=== PATIENT | male | born 1980 | race African-American/Black ===

== ENCOUNTER 2020-02-16 15:34 | Emergency (ER) | payer MEDICAID, OTHER ==
[~2020-02-16] VITALS: Ht 188 cm; Wt 92.0 kg
[2020-02-16] MEDS ORDERED: KETOROLAC 60MG/2ML VIAL IM STA (16:44)
[2020-02-16 17:19] LABS: CLARITY URINE CLEAR (CLEAR); COLOR URINE YELLOW (YELLOW); KETONES URINE NEGATIVE (NEGATIVE); LEUKOCYTE ESTERASE URINE NEGATIVE (NEGATIVE); NITRITE URINE NEGATIVE (NEGATIVE); OCCULT BLOOD URINE NEGATIVE (NEGATIVE); PROTEIN URINE NEGATIVE (NEGATIVE); SPECIFIC GRAVITY URINE 1.005 (1.005-1.030); UROBILINOGEN URINE 0.2 E.U./dL (0.2-1.0)
[2020-02-16 17:44] VITALS: BP 121/70
[2020-02-16 17:56] LABS: BASOPHILS % 0.6 % (0.0-2.0); EOSINOPHILS % 1.7 % (0.0-5.0); HEMATOCRIT. 46.1 % (42.0-52.0); HEMOGLOBIN. 15.4 g/dL (14.0-18.0); MEAN CORPUSCULAR HEMOGLOBIN 29.8 pg (28.0-32.0); MEAN CORPUSCULAR VOLUME 89.2 fL (80.0-94.0); MEAN PLATELET VOLUME 7.6 fl (7.4-10.4); MONOCYTES % 7.3 % (2.0-8.0); NEUTROPHILS % 46.4 % (40.0-76.0); PLATELET 231 x1000/uL (130-400); RED BLOOD CELL COUNT 5.17 mill/uL (4.7-6.1); RED CELL DISTRIBUTION WIDTH 12.9 % (11.6-14.6)
[2020-02-16 18:00] LABS: CHLORIDE 104 mEq/L (98-107)
== END 2020-02-16 20:25 | disposition home or self-care (01) ==
LOC: ER 15:34
DX: R10.9 Unspecified abdominal pain (principal); M79.18 Myalgia, other site; J45.909 Unspecified asthma, uncomplicated
CPT/HCPCS: 36415; 80053; 81003; 85025; 93005; 99284; J1885

== ENCOUNTER 2020-02-18 17:13 | Emergency (ER) | payer OTHER, MEDICAID ==
[~2020-02-18] VITALS: Ht 188 cm; Wt 95.0 kg
[2020-02-18 17:46] VITALS: BP 123/84
[2020-02-18] MEDS ORDERED: SODIUM CHLORIDE 0.9% 1,000 ML IV ONE (17:55)
[2020-02-18 18:45] LABS: CLARITY URINE CLEAR (CLEAR); COLOR URINE DK YELLOW (YELLOW); KETONES URINE 2+ (NEGATIVE); LEUKOCYTE ESTERASE URINE NEGATIVE (NEGATIVE); NITRITE URINE NEGATIVE (NEGATIVE); OCCULT BLOOD URINE NEGATIVE (NEGATIVE); PROTEIN URINE TRACE (NEGATIVE); SPECIFIC GRAVITY URINE 1.027 (1.005-1.030)
[2020-02-18 18:49] LABS: BASOPHILS % 0.9 % (0.0-2.0); EOSINOPHILS % 1.6 % (0.0-5.0); HEMATOCRIT. 44.2 % (42.0-52.0); HEMOGLOBIN. 14.8 g/dL (14.0-18.0); LYMPHOCYTES % 43.5 % (20.0-50.0); MEAN CORPUSCULAR HEMOGLOBIN 29.8 pg (28.0-32.0); MEAN CORPUSCULAR VOLUME 89.2 fL (80.0-94.0); MEAN PLATELET VOLUME 7.8 fl (7.4-10.4); MONOCYTES % 6.9 % (2.0-8.0); NEUTROPHILS % 47.1 % (40.0-76.0); PLATELET 224 x1000/uL (130-400); RED BLOOD CELL COUNT 4.95 mill/uL (4.7-6.1); RED CELL DISTRIBUTION WIDTH 12.7 % (11.6-14.6)
[2020-02-18 18:51] LABS: CHLORIDE 104 mEq/L (98-107)
[2020-02-18 18:54] LABS: INR 1.1; PROTHROMBIN TIME 11.4 sec (9.6-11.0)
[2020-02-18 19:02] LABS: *AMPHETAMINES SCREEN URINE NEGATIVE (NEGATIVE); *BARBITURATES SCREEN URINE NEGATIVE (NEGATIVE); *COCAINE SCREEN URINE NEGATIVE (NEGATIVE)
[2020-02-18 19:03] LABS: *BENZODIAZEPINES SCREEN URINE NEGATIVE (NEGATIVE); CANNABINOID URINE SCREEN NEGATIVE (NEGATIVE); METHADONE URINE SCREEN NEGATIVE (NEGATIVE); OPIATES URINE SCREEN NEGATIVE (NEGATIVE); PHENCYCLIDINE URINE SCREEN NEGATIVE (NEGATIVE)
== END 2020-02-18 21:02 | disposition left against medical advice (07) ==
LOC: ER 17:13
DX: R10.9 Unspecified abdominal pain (principal); J45.909 Unspecified asthma, uncomplicated
CPT/HCPCS: 36415; 80053; 80305; 81003; 83690; 85025; 85610; 93005; 99284; J7030

== ENCOUNTER 2022-12-27 14:43 | Emergency (ER) | payer MEDICAID, OTHER ==
[~2022-12-27] VITALS: Ht 185.4 cm; Wt 100.0 kg
[2022-12-27 23:30] VITALS: BP 122/78
[2022-12-27] MEDS ORDERED: IBUPROFEN 400MG TABLET PO NR (23:30)
[2022-12-27] MEDS ORDERED: IBUPROFEN 800MG TABLET PO ONE (23:30)
[2022-12-28] MEDS ORDERED: IBUP-2030 MT (00:13)
[2022-12-28] MEDS ORDERED: CYCL10TA21 MT (00:13)
== END 2022-12-28 01:58 | disposition home or self-care (01) ==
LOC: ER 14:43
DX: S52.125A Nondisplaced fracture of head of left radius, initial encounter for closed fracture (principal); J45.909 Unspecified asthma, uncomplicated; W19.XXXA Unspecified fall, initial encounter; Y93.89 Activity, other specified; Y92.89 Other specified places as the place of occurrence of the external cause; Y99.8 Other external cause status
CPT/HCPCS: 29105; 73080; 99283

== ENCOUNTER 2024-08-24 15:53 | Emergency (ER) | payer MEDICAID ==
[~2024-08-24] VITALS: Ht 185.4 cm; Wt 105.0 kg
[~2024-08-24 15:53] MED LIST: CYCL10TA21 MT; IBUP-2030 MT
[2024-08-24 15:56] VITALS: O2SAT 100
[2024-08-24] MEDS ORDERED: DEXAMETHASONE 4MG TABLET PO ONE (17:45)
[2024-08-24 18:17] VITALS: PULSE 84; RESP 18
[2024-08-24] MEDS: IPRATROPIUM/ALBUTEROL 0.5-3(2.5)MG/3ML NEB HHN ONE (18:17)
[2024-08-24] MEDS ORDERED: ALBU18HF2 IH (18:24)
[2024-08-24 18:40] VITALS: BP 128/74; PULSE 81; RESP 16; TEMP 36.7; O2SAT 100
[2024-08-24] MEDS: DEXAMETHASONE 4MG TABLET PO NR (19:13)
== END 2024-08-24 19:18 | disposition home or self-care (01) ==
LOC: ER 15:53
DX: J45.901 Unspecified asthma with (acute) exacerbation (principal)
CPT/HCPCS: 94640; 93005; 99283; J8540; Z7610 ×3

== ENCOUNTER 2024-09-22 12:22 | Emergency (ER) | payer MEDICAID ==
[~2024-09-22] VITALS: Ht 185.4 cm; Wt 99.7 kg
[~2024-09-22 12:22] MED LIST changes: +ALBU18HF2 IH
[2024-09-22 12:27] VITALS: BP 113/72; TEMP 36.8; O2SAT 100; O2SAT 98
[2024-09-22 13:11] LABS: BASOPHILS % 0.9 % (0.0-2.0); HEMATOCRIT. 43.6 % (42.0-52.0); HEMOGLOBIN. 14.3 g/dL (14.0-18.0); LYMPHOCYTES % 39.9 % (20.0-50.0); MEAN CORPUSCULAR HEMOGLOBIN 28.6 pg (28.0-32.0); MEAN CORPUSCULAR HGB CONC 32.7 g/dL (31.0-37.0); MEAN CORPUSCULAR VOLUME 87.4 fL (80.0-94.0); MEAN PLATELET VOLUME 7.4 fl (7.4-10.4); MONOCYTES % 7.8 % (2.0-8.0); NEUTROPHILS % 49.4 % (40.0-76.0); PLATELET 260 x1000/uL (130-400); RED BLOOD CELL COUNT 4.99 mill/uL (4.7-6.1); RED CELL DISTRIBUTION WIDTH 13.1 % (11.6-14.6); WHITE BLOOD COUNT 4.9 x1000/uL (4.5-11.0)
[2024-09-22 13:17] VITALS: PULSE 76; RESP 18
[2024-09-22] MEDS: IPRATROPIUM BROMIDE (0.02%) 0.5MG/2.5ML NEB HHN STA (13:17)
[2024-09-22] MEDS: ALBUTEROL (0.083%) 2.5MG/3ML NEB HHN STA (13:17)
[2024-09-22 13:21] LABS: CHLORIDE 106 mEq/L (98-107); POTASSIUM 4.2 mEq/L (3.5-5.1); SODIUM 142 mEq/L (136-145)
[2024-09-22 13:22] LABS: CARBON DIOXIDE 29 mEq/L (21-32)
[2024-09-22 13:23] LABS: CALCIUM 9.1 mg/dL (8.7-10.4)
[2024-09-22 13:27] LABS: GLUCOSE 88 mg/dL (70-105); UREA NITROGEN BLOOD 11 mg/dL (9-23)
[2024-09-22 13:29] LABS: TROPONIN I HIGH SENSITIVITY < 4 ng/L (3.0-53)
[2024-09-22] MEDS ORDERED: ALBU90AE INH (14:05)
[2024-09-22] MEDS ORDERED: P50 PO (14:05)
== END 2024-09-22 15:10 | disposition home or self-care (01) ==
LOC: ER 12:22
DX: J45.901 Unspecified asthma with (acute) exacerbation (principal); Z79.52 Long term (current) use of systemic steroids
CPT/HCPCS: 80048; 85025; 84484; 36415; 71045; 93005; 94644; 99285; Z7610; 94070; 94640